=== PATIENT | male | born 1945 | race Two or more races ===

== ENCOUNTER → 2024-10-04 | Emergency (ER) | payer OTHER ==
[~2024-10-04] VITALS: Ht 170.2 cm; Wt 77.1 kg
[~2024-10-04] MED LIST: 0.9 % SODIUM CHLORIDE 1,000 ML IV SCH; ASPIRIN 325 MG TABLET.EC PO STA; DICLOFENAC POTA50 MG PO
[2024-10-04 12:49] LABS: BASO % 0.3 % (0.1-1.2); EOS # 0.04 (0.04-0.54); EOS % 0.3 % (0.7-7.0); LYMPH # 1.93 (1.18-3.74); LYMPH % 16.9 % (19.3-53.1); MEAN PLATELET VOLUME 9.40 fl (9.4-12.4); MONO # 0.60 (0.24-0.82); MONO % 5.2 % (4.7-12.5); NEUT # 8.79 (1.56-6.13); NEUT % 77.0 % (34.0-71.1); RED CELL DISTRIBUTION WIDTH 13.2 % (11.6-14.4)
[2024-10-04 13:00] LABS: INR 1.08
[2024-10-04 13:25] LABS: ALT/SGPT 30.0 U/L (12-78); AST/SGOT 25.0 U/L (15-37); BUN CREA RATIO 25.0 (7.0-25.0); CREATININE SERUM 1.37 mg/dL (0.70-1.30); GFR 50.38; LDH 267.0 U/L (87-241); OSMOLALITY SERUM 300.0 MOSM/KG (275-295); PHOSPHOKINASE CREATININE 196.0 U/L (39-308)
[2024-10-04 13:27] LABS: GLUCOSE FASTING 268.0 mg/dL (65-100)
[2024-10-04 14:32] VITALS: BP 90/49; O2SAT 100
== END | disposition designated cancer center or children's hospital (05) ==
LOC: ER 12:13
PROVIDERS: Emergency Medicine
DX: R07.89 Other chest pain (principal)
CPT/HCPCS: 36415; 71045; 93005; 93041; 96365; 99285; J3490